=== PATIENT | male | born 1960 | race Two or more races ===

== ENCOUNTER 2025-01-12 10:27 | Inpatient (IN) | payer MEDICARE, OTHER ==
[~2025-01-12] VITALS: Ht 165.1 cm; Wt 69.9 kg
[2025-01-12] VITALS (8 sets, daily range): BP systolic 126–151; BP diastolic 74–86; TEMP 98.4–98.8; O2SAT 94–98
[2025-01-12] MEDS ORDERED: ACET160S GT (12:22)
[2025-01-12] MEDS ORDERED: ALBU2.5V13 IH (12:22)
[2025-01-12] MEDS ORDERED: LIDO30CR47 TP (12:23)
[2025-01-12] MEDS ORDERED: CLON1TAB12 GT (12:23)
[2025-01-12] MEDS ORDERED: ATOR10TA GT (12:23)
[2025-01-12] MEDS ORDERED: DOCU100T2 GT (12:23)
[2025-01-12] MEDS ORDERED: CARB10DR5 EACHEYE (12:23)
[2025-01-12] MEDS ORDERED: APIX2.5T GT (12:23)
[2025-01-12] MEDS ORDERED: SODI100037 GT (12:23)
[2025-01-12] MEDS ORDERED: HYDR-3972 GT (12:23)
[2025-01-12] MEDS ORDERED: NA P133E RC (12:23)
[2025-01-12] MEDS ORDERED: TAMS-12 GT (12:23)
[2025-01-12] MEDS ORDERED: MAGN400O6 GT (12:23)
[2025-01-12] MEDS ORDERED: ONDA4TAB5 GT (12:23)
[2025-01-12] MEDS ORDERED: SENN-301 GT (12:23)
[2025-01-12] MEDS ORDERED: LACO10SO GT (12:23)
[2025-01-12] MEDS ORDERED: ASPI-1169 GT (12:23)
[2025-01-12] MEDS ORDERED: PANT40SU2 GT (12:23)
[2025-01-12] MEDS ORDERED: MELA3CAP2 GT (12:23)
[2025-01-12] MEDS ORDERED: MEMA10TA GT (12:23)
[2025-01-12] MEDS ORDERED: DEXT15DR23 EACHEYE (12:23)
[2025-01-12] MEDS ORDERED: MULT-213 GT (12:23)
[2025-01-12] MEDS ORDERED: LEVE100S GT (12:23)
[2025-01-12] MEDS ORDERED: BISA10SU61 RC (12:23)
[2025-01-12] MEDS ORDERED: CHLO473M5 MM (12:23)
[2025-01-12] MEDS ORDERED: LISI20TA30 GT (12:23)
[2025-01-12] MEDS ORDERED: METO50TA16 GT (12:23)
[2025-01-12 12:48] LABS: LACTIC ACID 1.8 mmol/L (0.4-2.0)
[2025-01-12 12:51] LABS: INR 1.13 (0.91-1.10)
[2025-01-12 12:53] LABS: CALCIUM, SERUM 8.3 mg/dL (8.5-10.1); CREATININE 3.0 mg/dL (0.6-1.3); PLATELET COUNT (AUTO) 105 K/uL (150-450); RED BLOOD CELL COUNT(AUTO) 3.91 MIL/uL (4.5-6.0); RED CELL DISTRIBUTION WIDTH 15.4 % (11.5-15.0); SODIUM SERUM 124 mmol/L (136-145); UREA NITROGEN, BLOOD 54 mg/dL (7-18); WHITE BLOOD COUNT (AUTO) 14.4 K/uL (4.3-11.0)
[2025-01-12 12:57] LABS: ASPARTATE AMINOTRANSFERASE 56 U/L (15-37); TOTAL PROTEIN, SERUM 6.8 g/dL (6.4-8.2)
[2025-01-12 12:59] LABS: SERUM AMMONIA < 10 umol/L (11-32)
[2025-01-12] MEDS ORDERED: CEFTRIAXONE 1GM BAG (ER ONLY) 50 ML IV ONE (14:52)
[2025-01-12 14:57] LABS: APPEARANCE,URINE SLIGHTLY CLOUDY (CLEAR); BLOOD, URINE 3+ Ery/uL (NEGATIVE); LEUKOCYTE ESTERASE ,URINE 3+ (NEGATIVE); NITRITE, URINE NEGATIVE (NEGATIVE); UGLUCOSE NEGATIVE (NEGATIVE)
[2025-01-12] MEDS: CEFTRIAXONE 1 G in IV D5W 50 ML IV ONE (15:00)
[2025-01-12] MEDS: IV LR 1000 ML 1,000 ML BAG IV ONE (15:00)
[2025-01-12 15:12] LABS: ADD URINE CULTURE YES; SQUAMOUS EPITHELIAL CELL,UR Few /HPF (None Seen)
[2025-01-12] MEDS ORDERED: ACETAMINOPHEN 160 MG/5 ML GT PRN (17:00)
[2025-01-12] MEDS ORDERED: MAGNESIUM HYDROXIDE 30 ML UDC PO PRN (17:00)
[2025-01-12] MEDS ORDERED: Medication Not On Formulary EA (Ondansetron Hcl (Zofran) 8 MG) GT PRN (17:00)
[2025-01-12] MEDS ORDERED: MAGNESIUM HYDROXIDE 30 ML UDC GT PRN (17:00)
[2025-01-12] MEDS ORDERED: ONDANSETRON HCL/PF 4 MG/2 ML VIAL IVP PRN (17:00)
[2025-01-12] MEDS ORDERED: BISACODYL SUPP (10 MG) 10 MG/SUPP.RECT SUPP.RECT RC PRN (17:00)
[2025-01-12] MEDS ORDERED: ZOLPIDEM TARTRATE 5 MG TABLET PO PRN (17:00)
[2025-01-12] MEDS ORDERED: ACETAMINOPHEN 325 MG TABLET PO PRN (17:00)
[2025-01-12] MEDS ORDERED: MAG HYDROX/AL HYDROX/SIMETH 30 ML UDC PO PRN (17:00)
[2025-01-12] MEDS: SODIUM CHLORIDE 1000 MG TABLET GT SCH (17:45)
[2025-01-12] MEDS: SENNOSIDES 8.6 MG TABLET GT SCH (17:45)
[2025-01-12] MEDS: LACOSAMIDE ORAL SOLN 50 MG/5 ML UDC GT SCH (17:46)
[2025-01-12] MEDS: IV NS 0.9% 1,000 ML IV PRN (17:46)
[2025-01-12] MEDS: ALBUTEROL FS 2.5 MG/0.5 ML VIAL.NEB IH SCH (20:04)
[2025-01-12] MEDS: LEVETIRACETAM SOL (5 ML) 100 MG/ML UDC GT SCH (21:06)
[2025-01-12] MEDS: METOPROLOL TARTRATE 50 MG TABLET GT SCH (21:07)
[2025-01-12] MEDS: CARBOXYMETHYLCELLULOSE SODIUM 0.4 ML DROPERETTE EACHEYE PRN (21:08)
[2025-01-12] MEDS: ARTIFICIAL TEARS 15 ML BOTTLE EACHEYE SCH (21:09)
[2025-01-12] MEDS: CHLORHEXIDINE GLUCONATE 15 ML UDC MM SCH (21:55)
[2025-01-12] MEDS: TAMSULOSIN 0.4 MG CAP.SR.24H GT SCH (21:55)
[2025-01-12] MEDS: ATORVASTATIN 10 MG TABLET GT SCH (21:55)
[2025-01-12] MEDS: ASPIRIN 81 MG TAB.CHEW GT SCH (21:55)
[2025-01-13] VITALS (15 sets, daily range): BP systolic 100–140; BP diastolic 52–75; TEMP 98.4–101.3; O2SAT 91–100
[2025-01-13] MEDS: HYDROCODONE/APAP 5/325MG TABLET GT PRN (02:08)
[2025-01-13] MEDS: ACETAMINOPHEN 650 MG/20.3 ML UDC GT PRN (03:09)
[2025-01-13] MEDS ORDERED: PANTOPRAZOLE 40 MG TABLET.DR PO SCH (07:30)
[2025-01-13 07:52] LABS: ASPARTATE AMINOTRANSFERASE 61.0 U/L (15-37); CALCIUM, SERUM 8.2 mg/dL (8.5-10.1); CREATININE 3.2 mg/dL (0.6-1.3); PHOSPHORUS 2.3 mg/dL (2.5-4.9); SODIUM SERUM 129.0 mmol/L (136-145); TOTAL PROTEIN, SERUM 6.3 g/dL (6.4-8.2); UREA NITROGEN, BLOOD 63.0 mg/dL (7-18)
[2025-01-13 07:53] LABS: PLATELET COUNT (AUTO) 90 K/uL (150-450); RED BLOOD CELL COUNT(AUTO) 4.00 MIL/uL (4.5-6.0); RED CELL DISTRIBUTION WIDTH 15.9 % (11.5-15.0); WHITE BLOOD COUNT (AUTO) 13.1 K/uL (4.3-11.0)
[2025-01-13] MEDS: DOCUSATE SODIUM LIQ 100 MG/10 ML UDC GT SCH (08:13)
[2025-01-13] MEDS: MEMANTINE HCL 5 MG TABLET GT SCH (08:15)
[2025-01-13] MEDS: PANTOPRAZOLE 40 MG/PACK PACK GT SCH (08:15)
[2025-01-13] MEDS: MULTIVIT W/MINERALS 1 TAB TABLET GT SCH (08:15)
[2025-01-13] MEDS ORDERED: LIDOCAINE 5% (PATCH) 1 EA PATCH TP PRN (09:00)
[2025-01-13 10:24] LABS: LYMPHOCYTES % (MANUAL) 5 % (16-48); MONOCYTES % (MANUAL) 3 % (0-11.0); NEUTROPHILS % (MANUAL) 92 (42-76); PLATELET ESTIMATE DECREASED
[2025-01-13] MEDS ORDERED: ZOLPIDEM TARTRATE 5 MG TABLET GT PRN (12:48)
[2025-01-13] MEDS ORDERED: MAGNESIUM HYDROXIDE 30 ML UDC GT PRN (12:48)
[2025-01-13] MEDS ORDERED: MAG HYDROX/AL HYDROX/SIMETH 30 ML UDC GT PRN (12:48)
[2025-01-13] MEDS: JEVITY 1.2 CAL 1,000 ML BOTTLE GT PRN (13:14)
[2025-01-13] MEDS: CEFTRIAXONE 1 G in IV D5W 50 ML IV SCH (14:30)
[2025-01-14] VITALS (14 sets, daily range): BP systolic 104–136; BP diastolic 57–71; TEMP 98.2–101.7; O2SAT 94–100
[2025-01-14 07:35] LABS: PLATELET COUNT (AUTO) 77 K/uL (150-450); RED BLOOD CELL COUNT(AUTO) 3.57 MIL/uL (4.5-6.0); RED CELL DISTRIBUTION WIDTH 15.9 % (11.5-15.0); WHITE BLOOD COUNT (AUTO) 13.3 K/uL (4.3-11.0)
[2025-01-14 08:11] LABS: ASPARTATE AMINOTRANSFERASE 58.0 U/L (15-37); CALCIUM, SERUM 8.3 mg/dL (8.5-10.1); CREATININE 3.1 mg/dL (0.6-1.3); PHOSPHORUS 2.9 mg/dL (2.5-4.9); SODIUM SERUM 136.0 mmol/L (136-145); TOTAL PROTEIN, SERUM 6.3 g/dL (6.4-8.2); UREA NITROGEN, BLOOD 65.0 mg/dL (7-18)
[2025-01-14 08:16] LABS: CREATINE KINASE, TOTAL 66.0 U/L (39-308)
[2025-01-14 11:51] LABS: LYMPHOCYTES % (MANUAL) 4 % (16-48); MONOCYTES % (MANUAL) 3 % (0-11.0); NEUTROPHILS % (MANUAL) 93 (42-76); PLATELET ESTIMATE DECREASED
[2025-01-14] MEDS: MEROPENEM 500 MG in IV NS 0.9% 50 ML IV SCH (13:44)
[2025-01-15] VITALS (13 sets, daily range): BP systolic 105–144; BP diastolic 51–70; TEMP 98.2–100.1; O2SAT 94–100
[2025-01-15 05:10] LABS: PTH, INTACT 16 pg/mL (15-65)
[2025-01-15 06:32] LABS: PLATELET COUNT (AUTO) 55 K/uL (150-450); RED BLOOD CELL COUNT(AUTO) 3.24 MIL/uL (4.5-6.0); RED CELL DISTRIBUTION WIDTH 16.0 % (11.5-15.0); WHITE BLOOD COUNT (AUTO) 14.3 K/uL (4.3-11.0)
[2025-01-15 07:09] LABS: ASPARTATE AMINOTRANSFERASE 53.0 U/L (15-37); CALCIUM, SERUM 8.2 mg/dL (8.5-10.1); CREATININE 3.6 mg/dL (0.6-1.3); PHOSPHORUS 2.0 mg/dL (2.5-4.9); SODIUM SERUM 144.0 mmol/L (136-145); TOTAL PROTEIN, SERUM 5.8 g/dL (6.4-8.2); UREA NITROGEN, BLOOD 70.0 mg/dL (7-18)
[2025-01-15 09:41] LABS: BASOPHILS % (MANUAL) 0 % (0.0-2.0); EOSINOPHILS % (MANUAL) 0 % (0-4); LYMPHOCYTES % (MANUAL) 6 % (16-48); MONOCYTES % (MANUAL) 7 % (0-11.0); NEUTROPHILS % (MANUAL) 87 (42-76); PLATELET ESTIMATE DECREASED
[2025-01-15 15:07] LABS: *SPE A/G RATIO 0.6 (0.7-1.7); *SPE ALBUMIN 2.2 g/dL (2.9-4.4); *SPE ALPHA-1-GLOBULIN 0.5 g/dL (0.0-0.4); *SPE ALPHA-2-GLOBULIN 0.8 g/dL (0.4-1.0); *SPE BETA GLOBULIN 1.3 g/dL (0.7-1.3); *SPE GLOBULIN, TOTAL 3.5 g/dL (2.2-3.9); *SPE M-SPIKE Not Observed g/dL (Not Observed); *SPE PROTEIN TOTAL 5.7 g/dL (6.0-8.5); *SPEGAMMA GLOBULIN 0.9 g/dL (0.4-1.8)
[2025-01-15] MEDS: JEVITY 1.2 CAL 1,000 ML BOTTLE GT PRN (19:03)
[2025-01-15] MEDS: ARTIFICIAL TEARS 15 ML BOTTLE EACHEYE SCH (21:08)
[2025-01-16] VITALS (16 sets, daily range): BP systolic 139–153; BP diastolic 70–82; TEMP 98.6–101.1; O2SAT 95–99
[2025-01-16 07:38] LABS: CALCIUM, SERUM 9.0 mg/dL (8.5-10.1); CREATININE 3.7 mg/dL (0.6-1.3); PHOSPHORUS 2.7 mg/dL (2.5-4.9); SODIUM SERUM 150.0 mmol/L (136-145); UREA NITROGEN, BLOOD 71.0 mg/dL (7-18)
[2025-01-16 08:03] LABS: PLATELET COUNT (AUTO) 78 K/uL (150-450); RED BLOOD CELL COUNT(AUTO) 3.74 MIL/uL (4.5-6.0); RED CELL DISTRIBUTION WIDTH 16.7 % (11.5-15.0); WHITE BLOOD COUNT (AUTO) 15.5 K/uL (4.3-11.0)
[2025-01-16 11:23] LABS: LYMPHOCYTES % (MANUAL) 7 % (16-48); MONOCYTES % (MANUAL) 2 % (0-11.0); NEUTROPHILS % (MANUAL) 91 (42-76)
[2025-01-16 11:24] LABS: PLATELET ESTIMATE DECREASED
[2025-01-16] MEDS ORDERED: KEY,NONCONTROL,TO KEEP IN PYXI 1 EA MC ONE (23:12)
[2025-01-17] VITALS (14 sets, daily range): BP systolic 147–166; BP diastolic 68–93; TEMP 97.7–101.3; O2SAT 95–99
[2025-01-17 07:45] LABS: PLATELET COUNT (AUTO) 90 K/uL (150-450); RED BLOOD CELL COUNT(AUTO) 3.59 MIL/uL (4.5-6.0); RED CELL DISTRIBUTION WIDTH 16.7 % (11.5-15.0); WHITE BLOOD COUNT (AUTO) 16.0 K/uL (4.3-11.0)
[2025-01-17 08:06] LABS: CALCIUM, SERUM 8.8 mg/dL (8.5-10.1); CREATININE 3.8 mg/dL (0.6-1.3); PHOSPHORUS 3.6 mg/dL (2.5-4.9); UREA NITROGEN, BLOOD 70.0 mg/dL (7-18)
[2025-01-17 08:17] LABS: SODIUM SERUM 155.0 mmol/L (136-145)
[2025-01-17] MEDS: Z GUARD REMEDY 4 OZ OINT TP PRN (09:36)
[2025-01-17] MEDS: IV D5W 1,000 ML IV PRN ×2 (09:37→12:36)
[2025-01-17 12:05] LABS: BASOPHILS % (MANUAL) 0 % (0.0-2.0); EOSINOPHILS % (MANUAL) 0 % (0-4); LYMPHOCYTES % (MANUAL) 7 % (16-48); MONOCYTES % (MANUAL) 4 % (0-11.0); NEUTROPHILS % (MANUAL) 89 (42-76)
[2025-01-17 12:06] LABS: PLATELET ESTIMATE DECREASED
[2025-01-18] VITALS (31 sets, daily range): BP systolic 87–175; BP diastolic 40–103; TEMP 97.7–103.1; O2SAT 94–99
[2025-01-18 07:44] LABS: PLATELET COUNT (AUTO) 79 K/uL (150-450); RED BLOOD CELL COUNT(AUTO) 3.19 MIL/uL (4.5-6.0); RED CELL DISTRIBUTION WIDTH 16.0 % (11.5-15.0); WHITE BLOOD COUNT (AUTO) 16.3 K/uL (4.3-11.0)
[2025-01-18 07:50] LABS: CALCIUM, SERUM 7.9 mg/dL (8.5-10.1); CREATININE 3.9 mg/dL (0.6-1.3); SODIUM SERUM 148.0 mmol/L (136-145); UREA NITROGEN, BLOOD 70.0 mg/dL (7-18)
[2025-01-18] MEDS ORDERED: hydrALAZINE HCL IV 20 MG VIAL IV PRN (09:00)
[2025-01-18] MEDS: LORAZEPAM INJ 2 MG/ML VIAL IV ONE ×2 (09:03→18:53)
[2025-01-18] MEDS: LEVETIRACETAM (500MG) 1,500 MG in IV NS 0.9% 85 ML IV SCH (09:20)
[2025-01-18] MEDS: IV NS 0.45% 500 ML IV ONE (10:35)
[2025-01-18 12:15] LABS: BASOPHILS % (MANUAL) 0 % (0.0-2.0); EOSINOPHILS % (MANUAL) 0 % (0-4); LYMPHOCYTES % (MANUAL) 6 % (16-48); MONOCYTES % (MANUAL) 2 % (0-11.0); NEUTROPHILS % (MANUAL) 92 (42-76); PLATELET ESTIMATE DECREASED
[2025-01-18] MEDS ORDERED: IV NS 0.45% 500 ML IV ONE (18:30)
[2025-01-18] MEDS: IV LR 500 ML IV ONE (22:11)
[2025-01-18] MEDS ORDERED: IV NS 0.9% 500 ML IV ONE (22:30)
[2025-01-18] MEDS: IV NS 0.9% 500 ML IV ONE (23:09)
[2025-01-19] VITALS (21 sets, daily range): BP systolic 114–151; BP diastolic 57–72; TEMP 98.6–101.8; O2SAT 90–100
[2025-01-19 06:16] LABS: PLATELET COUNT (AUTO) 64 K/uL (150-450); RED BLOOD CELL COUNT(AUTO) 2.86 MIL/uL (4.5-6.0); RED CELL DISTRIBUTION WIDTH 16.2 % (11.5-15.0); WHITE BLOOD COUNT (AUTO) 15.3 K/uL (4.3-11.0)
[2025-01-19 06:25] LABS: CALCIUM, SERUM 7.3 mg/dL (8.5-10.1); CREATININE 3.9 mg/dL (0.6-1.3); SODIUM SERUM 146.0 mmol/L (136-145); UREA NITROGEN, BLOOD 73.0 mg/dL (7-18)
[2025-01-19 12:33] LABS: BAND % (MANUAL) 2 % (0.0-5.0); LYMPHOCYTES % (MANUAL) 6 % (16-48); NEUTROPHILS % (MANUAL) 88 (42-76)
[2025-01-19 12:34] LABS: BASOPHILS % (MANUAL) 0 % (0.0-2.0); EOSINOPHILS % (MANUAL) 0 % (0-4); MONOCYTES % (MANUAL) 4 % (0-11.0); PLATELET ESTIMATE DECREASED
[2025-01-20] VITALS (16 sets, daily range): BP systolic 100–146; BP diastolic 52–74; TEMP 98.2–99; O2SAT 94–100
[2025-01-20 06:51] LABS: PLATELET COUNT (AUTO) 71 K/uL (150-450); RED BLOOD CELL COUNT(AUTO) 2.71 MIL/uL (4.5-6.0); RED CELL DISTRIBUTION WIDTH 16.3 % (11.5-15.0); WHITE BLOOD COUNT (AUTO) 13.6 K/uL (4.3-11.0)
[2025-01-20 07:08] LABS: INR 1.03 (0.91-1.10)
[2025-01-20 07:23] LABS: CALCIUM, SERUM 7.5 mg/dL (8.5-10.1); CREATININE 3.9 mg/dL (0.6-1.3); SODIUM SERUM 152.0 mmol/L (136-145); UREA NITROGEN, BLOOD 78.0 mg/dL (7-18)
[2025-01-20] MEDS: LEVETIRACETAM SOL (5 ML) 100 MG/ML UDC GT SCH (10:54)
[2025-01-20 11:25] LABS: EOSINOPHILS % (MANUAL) 1 % (0-4); LYMPHOCYTES % (MANUAL) 4 % (16-48); NEUTROPHILS % (MANUAL) 95 (42-76); PLATELET ESTIMATE DECREASED
[2025-01-20] MEDS: JEVITY 1.2 CAL 1,000 ML BOTTLE GT PRN (17:04)
[2025-01-20] MEDS: IV 1/2NS 1000 ML 1,000 ML IV PRN (20:38)
[2025-01-21] VITALS (16 sets, daily range): BP systolic 121–153; BP diastolic 54–70; TEMP 98.6–100.4; O2SAT 96–100
[2025-01-21 06:45] LABS: PLATELET COUNT (AUTO) 88 K/uL (150-450); RED BLOOD CELL COUNT(AUTO) 2.80 MIL/uL (4.5-6.0); RED CELL DISTRIBUTION WIDTH 16.2 % (11.5-15.0); WHITE BLOOD COUNT (AUTO) 12.2 K/uL (4.3-11.0)
[2025-01-21 07:04] LABS: ASPARTATE AMINOTRANSFERASE 44.0 U/L (15-37); CALCIUM, SERUM 7.9 mg/dL (8.5-10.1); CREATININE 3.5 mg/dL (0.6-1.3); PHOSPHORUS 5.0 mg/dL (2.5-4.9); SODIUM SERUM 154.0 mmol/L (136-145); TOTAL PROTEIN, SERUM 6.9 g/dL (6.4-8.2); UREA NITROGEN, BLOOD 73.0 mg/dL (7-18)
[2025-01-21] MEDS: IV 1/2NS 1000 ML 1,000 ML IV SCH (10:07)
[2025-01-21 13:18] LABS: LYMPHOCYTES % (MANUAL) 5 % (16-48); MONOCYTES % (MANUAL) 1 % (0-11.0); NEUTROPHILS % (MANUAL) 94 (42-76)
[2025-01-21 13:20] LABS: PLATELET ESTIMATE DECREASED
[2025-01-22] VITALS (17 sets, daily range): BP systolic 119–142; BP diastolic 55–71; TEMP 98.7–101.1; O2SAT 97–100
[2025-01-22 08:09] LABS: PLATELET COUNT (AUTO) 98 K/uL (150-450); RED BLOOD CELL COUNT(AUTO) 2.67 MIL/uL (4.5-6.0); RED CELL DISTRIBUTION WIDTH 15.7 % (11.5-15.0); WHITE BLOOD COUNT (AUTO) 10.8 K/uL (4.3-11.0)
[2025-01-22 08:10] LABS: ASPARTATE AMINOTRANSFERASE 51.0 U/L (15-37); CALCIUM, SERUM 7.8 mg/dL (8.5-10.1); CREATININE 3.2 mg/dL (0.6-1.3); PHOSPHORUS 4.8 mg/dL (2.5-4.9); SODIUM SERUM 151.0 mmol/L (136-145); TOTAL PROTEIN, SERUM 7.2 g/dL (6.4-8.2); UREA NITROGEN, BLOOD 67.0 mg/dL (7-18)
[2025-01-22 13:26] LABS: BASOPHILS % (MANUAL) 0 % (0.0-2.0); EOSINOPHILS % (MANUAL) 0 % (0-4); LYMPHOCYTES % (MANUAL) 9 % (16-48); MONOCYTES % (MANUAL) 2 % (0-11.0); NEUTROPHILS % (MANUAL) 89 (42-76); PLATELET ESTIMATE DECREASED
[2025-01-22 18:06] LABS: APPEARANCE,URINE SLIGHTLY CLOUDY (CLEAR); BLOOD, URINE 3+ Ery/uL (NEGATIVE); LEUKOCYTE ESTERASE ,URINE 2+ (NEGATIVE); NITRITE, URINE NEGATIVE (NEGATIVE); UGLUCOSE NEGATIVE (NEGATIVE)
[2025-01-22 18:26] LABS: ADD URINE CULTURE YES
[2025-01-22 18:44] LABS: EOSINOPHIL,URINE None Seen
[2025-01-23] VITALS (21 sets, daily range): BP systolic 97–130; BP diastolic 49–83; TEMP 97.9–99.9; O2SAT 95–99
[2025-01-23 08:12] LABS: PLATELET COUNT (AUTO) 97 K/uL (150-450); RED BLOOD CELL COUNT(AUTO) 2.31 MIL/uL (4.5-6.0); RED CELL DISTRIBUTION WIDTH 15.6 % (11.5-15.0); WHITE BLOOD COUNT (AUTO) 10.0 K/uL (4.3-11.0)
[2025-01-23 08:29] LABS: CALCIUM, SERUM 7.6 mg/dL (8.5-10.1); CREATININE 3.5 mg/dL (0.6-1.3); PHOSPHORUS 4.9 mg/dL (2.5-4.9); SODIUM SERUM 148.0 mmol/L (136-145); UREA NITROGEN, BLOOD 73.0 mg/dL (7-18)
[2025-01-23 11:56] LABS: BAND % (MANUAL) 2 % (0.0-5.0); LYMPHOCYTES % (MANUAL) 10 % (16-48); MONOCYTES % (MANUAL) 3 % (0-11.0); NEUTROPHILS % (MANUAL) 85 (42-76); PLATELET ESTIMATE DECREASED
[2025-01-24] VITALS (19 sets, daily range): BP systolic 112–155; BP diastolic 56–76; TEMP 98.1–101.2; O2SAT 95–100
[2025-01-24 08:36] LABS: PLATELET COUNT (AUTO) 118 K/uL (150-450); RED BLOOD CELL COUNT(AUTO) 2.86 MIL/uL (4.5-6.0); RED CELL DISTRIBUTION WIDTH 15.4 % (11.5-15.0); WHITE BLOOD COUNT (AUTO) 9.0 K/uL (4.3-11.0)
[2025-01-24 17:22] LABS: APPEARANCE,URINE CLEAR (CLEAR); BLOOD, URINE 3+ Ery/uL (NEGATIVE); LEUKOCYTE ESTERASE ,URINE 1+ (NEGATIVE); NITRITE, URINE NEGATIVE (NEGATIVE); UGLUCOSE NEGATIVE (NEGATIVE)
[2025-01-24 17:29] LABS: ADD URINE CULTURE YES; SQUAMOUS EPITHELIAL CELL,UR 0-2 /HPF (None Seen)
[2025-01-24 18:00] LABS: CREATININE, URINE 22.6 MG/DL (30.0-125.0); URINE SODIUM, RANDOM 89.0 mmol/l (40-220); URINE TOTAL PROTEIN 58.8 mg/dL (0-11.9)
[2025-01-25] VITALS (19 sets, daily range): BP systolic 124–148; BP diastolic 61–96; TEMP 97.7–99.6; O2SAT 94–100
[2025-01-25 08:36] LABS: CALCIUM, SERUM 7.7 mg/dL (8.5-10.1); CREATININE 3.0 mg/dL (0.6-1.3); PHOSPHORUS 4.3 mg/dL (2.5-4.9); SODIUM SERUM 144.0 mmol/L (136-145); UREA NITROGEN, BLOOD 58.0 mg/dL (7-18)
[2025-01-25 10:03] LABS: PLATELET COUNT (AUTO) 123 K/uL (150-450); RED BLOOD CELL COUNT(AUTO) 2.85 MIL/uL (4.5-6.0); RED CELL DISTRIBUTION WIDTH 14.8 % (11.5-15.0); WHITE BLOOD COUNT (AUTO) 6.9 K/uL (4.3-11.0)
[2025-01-26] VITALS (16 sets, daily range): BP systolic 128–144; BP diastolic 65–78; TEMP 97.5–99.5; O2SAT 96–100
[2025-01-26 07:33] LABS: PLATELET COUNT (AUTO) 162 K/uL (150-450); RED BLOOD CELL COUNT(AUTO) 2.81 MIL/uL (4.5-6.0); RED CELL DISTRIBUTION WIDTH 14.4 % (11.5-15.0); WHITE BLOOD COUNT (AUTO) 6.8 K/uL (4.3-11.0)
[2025-01-26 07:41] LABS: ASPARTATE AMINOTRANSFERASE 43.0 U/L (15-37); CALCIUM, SERUM 7.4 mg/dL (8.5-10.1); CREATININE 2.8 mg/dL (0.6-1.3); PHOSPHORUS 4.2 mg/dL (2.5-4.9); SODIUM SERUM 138.0 mmol/L (136-145); TOTAL PROTEIN, SERUM 7.1 g/dL (6.4-8.2); UREA NITROGEN, BLOOD 49.0 mg/dL (7-18)
[2025-01-26] MEDS: IV 1/2NS 1000 ML 1,000 ML IV PRN (12:47)
[2025-01-27] VITALS (18 sets, daily range): BP systolic 110–159; BP diastolic 61–75; TEMP 97.9–99.5; O2SAT 94–100
[2025-01-27 07:14] LABS: PLATELET COUNT (AUTO) 186 K/uL (150-450); RED BLOOD CELL COUNT(AUTO) 2.59 MIL/uL (4.5-6.0); RED CELL DISTRIBUTION WIDTH 14.7 % (11.5-15.0); WHITE BLOOD COUNT (AUTO) 6.6 K/uL (4.3-11.0)
[2025-01-27 07:22] LABS: ASPARTATE AMINOTRANSFERASE 44.0 U/L (15-37); CALCIUM, SERUM 7.5 mg/dL (8.5-10.1); CREATININE 2.5 mg/dL (0.6-1.3); PHOSPHORUS 4.6 mg/dL (2.5-4.9); SODIUM SERUM 135.0 mmol/L (136-145); TOTAL PROTEIN, SERUM 7.0 g/dL (6.4-8.2); UREA NITROGEN, BLOOD 45.0 mg/dL (7-18)
[2025-01-28] VITALS (12 sets, daily range): BP systolic 129–139; BP diastolic 67–70; TEMP 97.5–99.9; O2SAT 97–99
[2025-01-28 08:30] LABS: ASPARTATE AMINOTRANSFERASE 42.0 U/L (15-37); CALCIUM, SERUM 8.0 mg/dL (8.5-10.1); CREATININE 2.5 mg/dL (0.6-1.3); PHOSPHORUS 4.7 mg/dL (2.5-4.9); SODIUM SERUM 134.0 mmol/L (136-145); TOTAL PROTEIN, SERUM 7.8 g/dL (6.4-8.2); UREA NITROGEN, BLOOD 43.0 mg/dL (7-18)
[2025-01-28 08:32] LABS: PLATELET COUNT (AUTO) 234 K/uL (150-450); RED BLOOD CELL COUNT(AUTO) 2.97 MIL/uL (4.5-6.0); RED CELL DISTRIBUTION WIDTH 14.4 % (11.5-15.0); WHITE BLOOD COUNT (AUTO) 6.9 K/uL (4.3-11.0)
[2025-01-28] MEDS ORDERED: MERO500P IV (09:56)
== END 2025-01-28 16:20 | DRG 871 ==
LOC: ER 10:46 → MED 13:57 → TELE 01-13 10:01 → MED 01-15 11:01 → TELE 01-18 10:24
PROVIDERS: ADMIT Student in an Organized Health Care Education/Training Program; ATTEND Student in an Organized Health Care Education/Training Program
PROC: 05HA33Z Insertion of Infusion Device into Left Brachial Vein, Percutaneous Approach (ICD-10-PCS; principal; 2025-01-18)
PROC: 30233N1 Transfusion of Nonautologous Red Blood Cells into Peripheral Vein, Percutaneous Approach (ICD-10-PCS; 2025-01-23)
DX: A41.59 Other Gram-negative sepsis (principal); E43 Unspecified severe protein-calorie malnutrition; G93.41 Metabolic encephalopathy; I21.A1 Myocardial infarction type 2; N17.0 Acute kidney failure with tubular necrosis; J15.8 Pneumonia due to other specified bacteria; E87.0 Hyperosmolality and hypernatremia; Z93.0 Tracheostomy status; D69.6 Thrombocytopenia, unspecified; R13.10 Dysphagia, unspecified; E88.09 Other disorders of plasma-protein metabolism, not elsewhere classified; N13.6 Pyonephrosis; J96.10 Chronic respiratory failure, unspecified whether with hypoxia or hypercapnia; R65.20 Severe sepsis without septic shock; B96.4 Proteus (mirabilis) (morganii) as the cause of diseases classified elsewhere; Z79.01 Long term (current) use of anticoagulants; G81.94 Hemiplegia, unspecified affecting left nondominant side; G40.909 Epilepsy, unspecified, not intractable, without status epilepticus; D64.9 Anemia, unspecified; I13.10 Hypertensive heart and chronic kidney disease without heart failure, with stage 1 through stage 4 chronic kidney disease, or unspecified chronic kidney disease; E11.22 Type 2 diabetes mellitus with diabetic chronic kidney disease; F03.90 Unspecified dementia, unspecified severity, without behavioral disturbance, psychotic disturbance, mood disturbance, and anxiety; I08.0 Rheumatic disorders of both mitral and aortic valves; N18.9 Chronic kidney disease, unspecified; E87.1 Hypo-osmolality and hyponatremia; Z16.12 Extended spectrum beta lactamase (ESBL) resistance; Z16.13 Resistance to carbapenem; N13.8 Other obstructive and reflux uropathy; R47.01 Aphasia; K62.89 Other specified diseases of anus and rectum; Z86.73 Personal history of transient ischemic attack (TIA), and cerebral infarction without residual deficits; E78.5 Hyperlipidemia, unspecified; K21.9 Gastro-esophageal reflux disease without esophagitis; Z93.1 Gastrostomy status; Z79.82 Long term (current) use of aspirin; K31.84 Gastroparesis; N40.1 Benign prostatic hyperplasia with lower urinary tract symptoms; K80.20 Calculus of gallbladder without cholecystitis without obstruction; R74.01 Elevation of levels of liver transaminase levels; E86.1 Hypovolemia
CPT/HCPCS: 31720; 36415; 70450-TC; 71045-TC; 71250-TC; 74018; 76770-TC; 80048-TC; 80053-TC; 80076-TC; 81001; 82140-TC; 82550-TC; 82570-TC; 83605-TC; 83735-TC; 83970; 84100-TC; 84155; 84165; 84295-TC; 84300-TC; 84443-TC; 84484-TC; 85025-TC; 85027-TC; 85610-TC; 85730-TC; 86850-TC; 87040-TC; 87070-TC; 87081-TC; 87086-TC; 87186-TC; 87205-TC; 93307-TC; 94640-TC; 94760-TC; 94761-TC; 94762-TC; 94799-TC; 99082-TC; A4223; A4623; A6403; G0378; J0696; J1953; J2060; J2185; J3490; J7030; J7040; J7050; J7060; J7070; J7120; P9016